=== PATIENT | male | born 1985 | race Caucasian/White ===

== ENCOUNTER 2017-01-26 11:12 | Emergency (ER) | payer OTHER, SELFPAY ==
--- NOTE | 2017-01-26 11:27 | EDM.PDOC ---
ED HPI GENERAL MEDICAL PROBLEM - General Chief Complaint: Behavioral/Psych Stated Complaint: MENTAL HEALTH EVAL Time Seen by Provider: 01/26/17 11:27 Source of Information: Reports: Patient - History of Present Illness INITIAL COMMENTS - FREE TEXT/NARRATIVE: Patient is here for evaluation of chronic depression. He's recently moved to [place] from [place] to work for the summer. He states this is his second year doing this. Patient reports a long history of depression as well as ADHD. He was previously on Ritalin and saw psychiatric on a weekly basis up until he the age of 19, he is no longer on any oral medications but does have a topical for his psoriasis. Patient reports feeling sad and a daily basis, states that this is significantly worsened since passing of his mother last July from a sudden heart attack. He states that his mother had a significant psychiatric history as well including biopsy for diagnosis and schizophrenia. States his mother had frequent suicidal ideations in which he would have to stay up with her through the night. Patient himself reports increased anger and depression. He does report significant paranoia at times as well. He chose to come today as he had screaming outbursts towards coworkers yesterday. 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 He denies any use of drugs or alcohol currently, states that he did try marijuana on one occasion in high school and occasionally consumes alcohol. He denies any current thoughts of harming himself or others though has contemplated suicide in the past. Treatments [employer]: Reports: Other (see below) Other Treatments [employer]: none - Related Data Allergies Allergy/AdvReac Type Severity Reaction Status Date / Time amoxicillin Allergy Cannot Verified 01/26/17 11:25 Remember Home Meds: Home Meds Psorisis Cream 0 mg TOP DAILY 01/26/17 [History] ED ROS GENERAL - Review of Systems Review Of Systems: See Below Constitutional: Reports: No Symptoms Respiratory: Reports: No Symptoms Cardiovascular: Reports: No Symptoms Skin: Reports: No Symptoms Neurological: Denies: Confusion, Dizziness, Headache Psychiatric: Reports: Agitation, Anxiety, Depression, Suicidal Ideation ( History of suicide attempt, has thought about it but no current thoughts of harming himself or others. ), Other (paranoia, anger). Denies: Confusion, Hallucinations, Homicidal Ideation ED EXAM, BEHAVIORAL HEALTH - Physical Exam Exam: See Below Exam Limited By: No Limitations General Appearance: Alert, WD/WN, No Apparent Distress Respiratory/Chest: No Respiratory Distress, Lungs Clear, Normal Breath Sounds Cardiovascular: Normal Peripheral Pulses, Regular Rate, Rhythm, No Murmur Neurological: Alert, CN II-XII Intact, No Motor/Sensory Deficits Psychiatric: Alert, Oriented, Depressed Mood, Other (Patient with fairly rapid speech, smiling excessively throughout conversation. ). No: Flat Affect, Disoriented Skin Exam: Warm, Dry, Intact COURSE, BEHAVIORAL HEALTH COMP - Course Vital Signs: Last Vital Signs Temp 98.1 F 01/26/17 11:20 Pulse 82 01/26/17 14:15 Resp 16 01/26/17 14:15 BP 120/89 01/26/17 14:15 Pulse Ox 96 01/26/17 14:15 Orders, Labs, Meds: Laboratory Tests 01/26/17 01/26/17 01/26/17 Range/Units 12:00 12:21 12:21 WBC 5.21 (4.23-9.07) K/mm3 RBC 5.44 (4.63-6.08) M/mm3 Hgb 16.4 (13.7-17.5) gm/L Hct 46.4 (40.1-51.0) % MCV 85.3 (79.0-92.2) fl MCH 30.1 (25.7-32.2) pg MCHC 35.3 (32.2-35.5) g/dl RDW Std Deviation 39.2 (35.1-43.9) fL Plt Count 297 (163-337) K/mm3 MPV 9.9 (9.4-12.3) fl Neutrophils % (Manual) 75 H (40-60) % Band Neutrophils % 1 (0-10) % Lymphocytes % (Manual) 22 (20-40) % Atypical Lymphs % 0 % Monocytes % (Manual) 2 (2-10) % Eosinophils % (Manual) 0 L (0.8-7.0) % Basophils % (Manual) 0 L (0.2-1.2) Platelet Estimate Adequate RBC Morph Comment Normal Sodium 137 (136-145) mEq/L Potassium 3.4 L (3.5-5.1) mEq/L Chloride 100 (98-107) mEq/L Carbon Dioxide 26 (21-32) mEq/L Anion Gap 14.4 (5-15) BUN 12 (7-18) mg/dL Creatinine 1.1 (0.7-1.3) mg/dL Est Cr Clr Drug Dosing 69.44 mL/min Estimated GFR (MDRD) > 60 (>60) mL/min BUN/Creatinine Ratio 10.9 L (14-18) Glucose 142 H (74-106) mg/dL Calcium 9.0 (8.5-10.1) mg/dL Total Bilirubin 0.4 (0.2-1.0) mg/dL AST 23 (15-37) U/L ALT 38 (16-63) U/L Alkaline Phosphatase 90 (46-116) U/L Total Protein 8.2 (6.4-8.2) g/dl Albumin 4.4 (3.4-5.0) g/dl Globulin 3.8 gm/dL Albumin/Globulin Ratio 1.2 (1-2) TSH 3rd Generation 1.234 (0.358-3.74) uIU/mL Urine Opiates Screen Negative (NEGATIVE) Ur Buprenorphine Scrn Negative (NEGATIVE) Ur Oxycodone Screen Negative (NEGATIVE) Urine Methadone Screen Negative (NEGATIVE) Ur Propoxyphene Screen Negative (NEGATIVE) Ur Barbiturates Screen Negative (NEGATIVE) Ur Tricyclics Screen Negative (NEGATIVE) Ur Phencyclidine Scrn Negative (NEGATIVE) Ur Amphetamine Screen Negative (NEGATIVE) U Methamphetamines Scrn Negative (NEGATIVE) U Benzodiazepines Scrn Negative (NEGATIVE) U Cocaine Metab Screen Negative (NEGATIVE) U Marijuana (THC) Screen Negative (NEGATIVE) Ethyl Alcohol 0.00 (0.00) gm% HIV-1 Ab Rapid Screen (NEGATIVE) 01/26/17 Range/Units 12:21 WBC (4.23-9.07) K/mm3 RBC (4.63-6.08) M/mm3 Hgb (13.7-17.5) gm/L Hct (40.1-51.0) % MCV (79.0-92.2) fl MCH (25.7-32.2) pg MCHC (32.2-35.5) g/dl RDW Std Deviation (35.1-43.9) fL Plt Count (163-337) K/mm3 MPV (9.4-12.3) fl Neutrophils % (Manual) (40-60) % Band Neutrophils % (0-10) % Lymphocytes % (Manual) (20-40) % Atypical Lymphs % % Monocytes % (Manual) (2-10) % Eosinophils % (Manual) (0.8-7.0) % Basophils % (Manual) (0.2-1.2) Platelet Estimate RBC Morph Comment Sodium (136-145) mEq/L Potassium (3.5-5.1) mEq/L Chloride (98-107) mEq/L Carbon Dioxide (21-32) mEq/L Anion Gap (5-15) BUN (7-18) mg/dL Creatinine (0.7-1.3) mg/dL Est Cr Clr Drug Dosing mL/min Estimated GFR (MDRD) (>60) mL/min BUN/Creatinine Ratio (14-18) Glucose (74-106) mg/dL Calcium (8.5-10.1) mg/dL Total Bilirubin (0.2-1.0) mg/dL AST (15-37) U/L ALT (16-63) U/L Alkaline Phosphatase (46-116) U/L Total Protein (6.4-8.2) g/dl Albumin (3.4-5.0) g/dl Globulin gm/dL Albumin/Globulin Ratio (1-2) TSH 3rd Generation (0.358-3.74) uIU/mL Urine Opiates Screen (NEGATIVE) Ur Buprenorphine Scrn (NEGATIVE) Ur Oxycodone Screen (NEGATIVE) Urine Methadone Screen (NEGATIVE) Ur Propoxyphene Screen (NEGATIVE) Ur Barbiturates Screen (NEGATIVE) Ur Tricyclics Screen (NEGATIVE) Ur Phencyclidine Scrn (NEGATIVE) Ur Amphetamine Screen (NEGATIVE) U Methamphetamines Scrn (NEGATIVE) U Benzodiazepines Scrn (NEGATIVE) U Cocaine Metab Screen (NEGATIVE) U Marijuana (THC) Screen (NEGATIVE) Ethyl Alcohol (0.00) gm% HIV-1 Ab Rapid Screen Negative (NEGATIVE) Re-Assessment/Re-Exam: Patient's current and past symptoms were discussed at length. His family history is certainly concerning for bipolar disorder and with the diagnosis of schizophrenia in his mother and his new symptoms of anger and paranoia these are concerning as well. He did visit with social work job titles as well who was concerned about the anger outbursts and paranoia and recommended consulting psychiatry/Dr. Olson. Discussed case with Dr. Olson who did state that he had an opening to evaluate the patient in the clinic tomorrow. The outpatient appointment was scheduled for 12:30 PM 01/27/2017. Patient is very agreeable to start working with a psychiatrist. He is agreeable to start counseling at [facility] and information was given to schedule this. He was also given information for the support group at [facility]. Patient is very motivated to seek treatment for his mental health. He denies any thoughts of harming himself or others at this point. He will follow-up with psychiatry tomorrow, advised patient he can return to ER if needed as well and he verbalized understanding of this. Departure - Departure Time of Disposition: 13:46 Disposition: Home, Self-Care 01 Condition: Fair Clinical Impression: Depressive disorder - Discharge Information Referrals: PCP,None [Primary Care Provider] - Forms: ED Department Discharge Additional Instructions: You are scheduled for a teleconference with Dr. Olson tomorrow at 12:30 PM. Arrives at the [facility] clinic by 12 PM for registration and paperwork. Your appointment will be on the second floor with Dr. Olson. Schedule an appointment for counseling at [facility] Consider the group therapy at [facility] [phone] May certainly return to ER if any worsening of symptoms or thoughts of harming herself or others.
[2017-01-26 14:24] VITALS: BP 120/89
== END 2017-01-26 14:15 | disposition home or self-care (01) ==
LOC: JD.ED 11:12
DX: F32.9 Major depressive disorder, single episode, unspecified (principal); Z79.899 Other long term (current) drug therapy; Z88.1 Allergy status to other antibiotic agents
CPT/HCPCS: 36415; 80053; 80306; 84443; 85025; 87449; 99284; G0480; 99283